=== PATIENT | female | born 1980 | race Asian ===

== ENCOUNTER 2017-09-11 00:29 | Emergency (ER) | payer BC ==
[~2017-09-11] VITALS: Ht 160 cm; Wt 52.0 kg
[2017-09-11] MEDS ORDERED: HYDROCODONE/ACETAMINOPHEN 5/325MG TABLET PO ONE (01:00)
[2017-09-11 01:50] VITALS: BP 110/65
== END 2017-09-11 01:53 | disposition home or self-care (01) ==
LOC: ER 00:35
DX: S60.212A Contusion of left wrist, initial encounter (principal); R10.30 Lower abdominal pain, unspecified; Z88.0 Allergy status to penicillin; Z98.890 Other specified postprocedural states; V43.52XA Car driver injured in collision with other type car in traffic accident, initial encounter; Y93.89 Activity, other specified; Y92.488 Other paved roadways as the place of occurrence of the external cause
CPT/HCPCS: 81025; 99283; Z7610